=== PATIENT | male | born 1995 | race Two or more races ===

== ENCOUNTER 2024-02-20 09:16 | Emergency (ER) | payer OTHER ==
[~2024-02-20] VITALS: Ht 172.7 cm; Wt 79.8 kg
[2024-02-20 09:51] VITALS: BP 140/90; PULSE 102; RESP 18; TEMP 100.1; O2SAT 96
== END 2024-02-20 10:33 | disposition home or self-care (01) ==
LOC: ER 09:16
DX: B34.9 Viral infection, unspecified (principal)